=== PATIENT | female | born 1990 | race Caucasian/White ===

== ENCOUNTER 2018-05-31 22:19 | Emergency (ER) | payer OTHER ==
[2018-05-31 22:30] VITALS: BP 118/77
[2018-05-31] MEDS ORDERED: AMOXICILLIN/CLAVULANATE POT 875/125 MG TAB PO ONE (22:53)
--- NOTE | 2018-05-31 22:53 | EDPHY ---
H & P Time Seen by Provider: 05/31/18 22:33 HPI/ROS: CHIEF COMPLAINT: Dog bite left pinky finger HISTORY OF PRESENT ILLNESS: 27-year-old [id number] female with up-to- date tetanus sustained accidental dog bite from her puppy dog to her left pinky finger distal phalanx palmar aspect when the dog jumped up in the tooth caught the distal phalanx sustaining a longitudinal laceration. No flexor or extensor deficits. No paresthesia. PHYSICAL EXAM (Prior to examination, patient consented to physical exam, hands were washed and my usual and customary physical exam procedures followed) 1) GENERAL: Well-developed, well-nourished, alert and oriented. Appears to be in no acute distress. 2) HEAD: Normocephalic 3) HEENT: sclera anicteric 4) LUNGS: Breathing comfortably. 5) SKIN: Left pinky finger distal phalanx palmar aspect 1.5 cm linear longitudinal laceration. Negative kanavel sign. No signs of infection. No foreign bodies visualized or palpated 6) MUSCULOSKELETAL: FDP, FDS function intact 7) NEUROLOGIC: Full sensation distally Smoking Status: Never smoked Constitutional: Initial Vital Signs Temperature (C) 36.9 C 05/31/18 22:28 Heart Rate 98 05/31/18 22:28 Respiratory Rate 20 05/31/18 22:28 Blood Pressure 118/77 05/31/18 22:28 O2 Sat (%) 98 05/31/18 22:28 O2 Delivery Mode Room Air Allergies/Adverse Reactions: No Known Allergies Allergy (Unverified 05/31/18 22:27) Home Medications: Medication Instructions Recorded Amoxicillin/Clavulanate Pot 875 mg PO BID #10 tab 05/31/18 [Augmentin 875 mg tab] MDM/Departure - MDM Procedures: Procedure: Digital nerve block Indication: Anesthetic prior to wound irrigation 1% plain lidocaine via digital nerve block performed by myself in my usual and customary fashion prior to wound irrigation and dressing. Patient tolerated procedure well. ED Course/Re-evaluation: Wound will be allowed to heal via secondary intention. Started on Augmentin after wound copiously irrigated and dressed. Given my usual customary wound precautions instructions. She feels Comfortable being discharged. Care of patient under supervision of secondary supervising physician Dr Zhao . - Depart Disposition: Home, Routine, Self-Care Clinical Impression: Dog bite of finger Qualifiers: Encounter type: initial encounter Qualified Code(s): S61.259A - Open bite of unspecified finger without damage to nail, initial encounter Condition: Good Instructions: Animal Bite (ED) Additional Instructions: Return to the ER if you develop redness, swelling, discharge, warmth to the wound, red streaks going up your arm, or any other symptoms that concern you. Prescriptions: Amoxicillin/Clavulanate Pot [Augmentin 875 mg tab] 875 mg PO BID #10 tab Referrals: Nahed Benitez MD [Medical Doctor] - 2-3 days, call for appt.
== END 2018-05-31 23:15 | disposition home or self-care (01) ==
DX: S61.257A Open bite of left little finger without damage to nail, initial encounter (principal); W54.0XXA Bitten by dog, initial encounter